=== PATIENT | male | born 1955 | race Caucasian/White ===

== ENCOUNTER 2016-08-14 16:19 | Inpatient (IN) | payer OTHER ==
[~2016-08-14] VITALS: Ht 185.4 cm; Wt 154.7 kg
[~2016-08-14 16:19] MED LIST: ATORVASTATIN CA10 MG PO; CIPRO500 MG PO; COUMADIN,JANTOVE6 MG PO; DEXILANT60 MG PO; DICYCLOMINE HCL10 MG PO; DOCUSATE CALCI240 MG PO; DONNATAL1 TABLET PO; GEMFIBROZIL600 MG PO; GLIPIZIDE XL10 MG PO; JANUVIA100 MG PO; LIPITOR10 MG PO; LISINOPRIL-HCT1 EACH PO; LOPID600 MG PO; NORCO 5/3251 TABLET PO; NORCO 7.5/321 TABLET PO; PREDNISONE50 MG PO; PROTONIX40 MG PO; RANITIDINE HCL300 MG PO; SENNA8.6 M1 PO; VALIUM5 MG PO; WARFARIN SODIUM3 MG PO; WARFARIN SODIUM5 MG PO; ZESTORETIC,P1 TABLET PO; ZOFRAN4 MG PO; ZOLPIDEM TARTRA10 MG PO
[2016-08-14 17:11] LABS: MCH 29.8 PG (29.0-34.0); MCHC 34.7 G/DL (30.0-36.0); MEAN PLAT.VOLUME 10.9 uM^3 (9.0-12.4); PLATELET COUNT 123 K/uL (156-360); RBC DIS.WIDTH-CV 13.5 % (11.8-14.6); RBC DIS.WIDTH-SD 42.4 % (39-53); RED BLOOD COUNT 5.23 M/uL (4.00-5.50); WHITE BLOOD COUNT 5.6 K/uL (4.1-10.2)
[2016-08-14 17:23] LABS: INTER. NORMALIZED RATIO 2.3; PROTHROMBIN TIME 23.5 (9.2-11.2)
[2016-08-14 17:27] LABS: CHLORIDE 103 mEq/L (99-109); POTASSIUM 3.8 mEq/L (3.7-5.4); SODIUM 138 mEq/L (136-147)
[2016-08-14 17:29] LABS: GLUCOSE 131 mg/dL (70-99)
[2016-08-14 17:30] LABS: ANION GAP 11 MEQ/L (2-14)
[2016-08-14 17:33] LABS: GFR ESTIMATE (CALCULATED) > 59 mL/min/
[2016-08-14 17:34] LABS: UREA NITROGEN (BUN) 16 mg/dL (9-23)
[2016-08-14 17:36] LABS: TROP-I INTERPRETATION NEGATIVE; TROPONIN-I < 0.01 ng/mL (0.0-0.30)
[2016-08-14] MEDS ORDERED: WARFARIN SODIUM5 MG PO (18:53)
[2016-08-14] MEDS ORDERED: WARFARIN SODIUM2 MG PO (18:53)
[2016-08-14] MEDS ORDERED: PANTOPRAZOLE SO40 MG PO (18:56)
[2016-08-14] MEDS ORDERED: TRAMADOL HCL50 MG PO (18:56)
[2016-08-14 19:41] LABS: POINT-OF-CARE METER ID UU14100415
[2016-08-14 21:24] LABS: TROP-I INTERPRETATION NEGATIVE; TROPONIN-I < 0.01 ng/mL (0.0-0.30)
[2016-08-14 21:41] LABS: HDL CHOLESTEROL 32 MG/DL (Desirable>=40); LDL CHOLESTEROL 75 mg/dL (Desirable<100); NON-HDL CHOLESTEROL 129 mg/dL (Desirable<160); TOTAL CHOLESTEROL 161 mg/dL (Desirable<200); TRIGLYCERIDES 272 MG/DL (Normal: <150)
[2016-08-14 22:14] VITALS: BP 139/65
[2016-08-14 22:59] LABS: POINT-OF-CARE METER ID UU13113698
[2016-08-15 01:37] LABS: TROP-I INTERPRETATION NEGATIVE; TROPONIN-I < 0.01 ng/mL (0.0-0.30)
[2016-08-15 04:58] VITALS: BP 127/69
[2016-08-15 06:03] LABS: HEMATOCRIT 40.5 % (38.0-50.0); MCH 29.7 PG (29.0-34.0); MCHC 34.1 G/DL (30.0-36.0); MCV 87.3 FL (86-99); MEAN PLAT.VOLUME 9.9 uM^3 (9.0-12.4); PLATELET COUNT 141 K/uL (156-360); RBC DIS.WIDTH-CV 13.6 % (11.8-14.6); RBC DIS.WIDTH-SD 43.5 % (39-53); RED BLOOD COUNT 4.64 M/uL (4.00-5.50); WHITE BLOOD COUNT 5.6 K/uL (4.1-10.2)
[2016-08-15 06:13] LABS: INTER. NORMALIZED RATIO 2.2; PROTHROMBIN TIME 22.7 (9.2-11.2)
[2016-08-15 06:28] LABS: ANION GAP 9 MEQ/L (2-14); CHLORIDE 103 MEQ/L (99-109); GFR ESTIMATE (CALCULATED) > 59 mL/min/; GLUCOSE 127 mg/dL (70-99); SAMPLE HEMOLYSIS CHECK 0; SAMPLE ICTERIC CHECK 0; SAMPLE LIPEMIA CHECK 0; SODIUM 138 MEQ/L (136-147); UREA NITROGEN (BUN) 14 mg/dL (9-23)
[2016-08-15 07:01] LABS: TROP-I INTERPRETATION NEGATIVE; TROPONIN-I < 0.01 ng/mL (0.0-0.30)
[2016-08-15 08:01] LABS: POINT-OF-CARE METER ID UU14174216
[2016-08-15 08:10] VITALS: BP 104/57
[2016-08-15 11:50] VITALS: BP 126/69
[2016-08-15 11:56] LABS: POINT-OF-CARE METER ID UU13113698
== END 2016-08-15 15:02 | disposition home or self-care (01) | DRG 313 ==
LOC: EME 16:19 → 4EAST 20:49 → EDOF 20:49 → 4EAST 20:49
PROVIDERS: Emergency Medicine; Hospitalist; Internal Medicine
DX: R07.89 Other chest pain (principal); D68.51 Activated protein C resistance; Z68.42 Body mass index [BMI] 45.0-49.9, adult; I25.10 Atherosclerotic heart disease of native coronary artery without angina pectoris; E78.5 Hyperlipidemia, unspecified; E78.00 Pure hypercholesterolemia, unspecified; E66.01 Morbid (severe) obesity due to excess calories; M19.90 Unspecified osteoarthritis, unspecified site; K21.9 Gastro-esophageal reflux disease without esophagitis; D69.6 Thrombocytopenia, unspecified; E11.9 Type 2 diabetes mellitus without complications; I10 Essential (primary) hypertension; I45.10 Unspecified right bundle-branch block; Z79.01 Long term (current) use of anticoagulants; Z82.49 Family history of ischemic heart disease and other diseases of the circulatory system; Z86.711 Personal history of pulmonary embolism; Z87.891 Personal history of nicotine dependence; Z88.2 Allergy status to sulfonamides; Z73.6 Limitation of activities due to disability
CPT/HCPCS: 71020; 71275; 80048; 80061; 82948; 84484; 85027; 85610; 85730; 93005; 99281; 99285; J1815; J2270; J2405; J7030

== ENCOUNTER 2017-07-23 12:56 | Emergency (ER) | payer OTHER ==
[~2017-07-23] VITALS: Ht 185.4 cm; Wt 150.0 kg
[~2017-07-23 12:56] MED LIST changes: +PANTOPRAZOLE SO40 MG PO; +TRAMADOL HCL50 MG PO; +WARFARIN SODIUM2 MG PO
[2017-07-23 13:38] LABS: HEMOGLOBIN 13.3 G/DL (12.5-16.6); MCH 29.9 PG (29.0-34.0); MCHC 34.1 G/DL (30.0-36.0); MCV 87.6 FL (86-99); PLATELET COUNT 218 K/uL (156-360); RBC DIS.WIDTH-CV 13.1 % (11.8-14.6); RBC DIS.WIDTH-SD 41.5 % (39-53); RED BLOOD COUNT 4.45 M/uL (4.00-5.50); WHITE BLOOD COUNT 6.9 K/uL (4.1-10.2)
[2017-07-23 13:46] LABS: CHLORIDE 105 mEq/L (99-109); POTASSIUM 4.3 mEq/L (3.7-5.4); SODIUM 141 mEq/L (136-147)
[2017-07-23 13:47] LABS: GLUCOSE 177 mg/dL (70-99)
[2017-07-23 13:51] LABS: CREATININE 1.2 mg/dL (0.6-1.3); GFR ESTIMATE (CALCULATED) > 59 mL/min/ (58.99-99999)
[2017-07-23 13:52] LABS: UREA NITROGEN (BUN) 16 mg/dL (9-23)
[2017-07-23 13:58] LABS: TROP-I INTERPRETATION NEGATIVE; TROPONIN-I < 0.01 ng/mL (0.0-0.30)
[2017-07-23 14:54] LABS: INTER. NORMALIZED RATIO 1.5
[2017-07-23 14:56] LABS: PTT 31.7 SEC (25-37)
[2017-07-23 17:39] LABS: TROP-I INTERPRETATION NEGATIVE; TROPONIN-I 0.01 ng/mL (0.0-0.30)
[2017-07-23 17:58] VITALS: BP 124/67
== END 2017-07-23 18:10 | disposition home or self-care (01) ==
LOC: EME 12:56
PROVIDERS: Emergency Medicine
DX: R07.89 Other chest pain (principal); I10 Essential (primary) hypertension; E78.5 Hyperlipidemia, unspecified; E11.9 Type 2 diabetes mellitus without complications; K21.9 Gastro-esophageal reflux disease without esophagitis; D68.2 Hereditary deficiency of other clotting factors; F41.9 Anxiety disorder, unspecified; F32.9 Major depressive disorder, single episode, unspecified; Z86.718 Personal history of other venous thrombosis and embolism; Z79.01 Long term (current) use of anticoagulants; Z96.643 Presence of artificial hip joint, bilateral; Z87.442 Personal history of urinary calculi; Z79.84 Long term (current) use of oral hypoglycemic drugs; Z88.2 Allergy status to sulfonamides
CPT/HCPCS: 71046; 71275; 80048; 84484; 85027; 85610; 85730; 93005; 99281; 99285; J7030